=== PATIENT | female | born 1960 | race Caucasian/White ===

== ENCOUNTER 2016-04-05 12:49 | Outpatient (RCR) | payer OTHER ==
[~2016-04-05 12:49] MED LIST: ATOR20TA66 PO; PANT40TA2 PO; PNT40TEC; [UNRECOGNIZED DRUG - OTHER]
--- OUTSIDE RECORDS SUMMARY | 2016-04-05 12:53 | XMS REPORT | Continuity of Care Document ---
Author Author [facility] Organization [facility] Address Unknown Phone Unavailable Care Team Providers Care Poolroom Table Attendant Name Role Phone BERNADETTE CHANEY MD PCP Insurance Providers Payer Name Policy Number Subscriber Name Relationship Enter Insurance Name [id number] Nita Garcia 20 Self / Same As Patient Advance Directives Directive Response Recorded Date/Time Advance Directives Yes 12/22/15 12:59pm Health Care Power of [employer] Yes 12/22/15 12:59pm Organ Donor No 09/18/07 11:27am Resuscitation Status Full Code 12/22/15 12:59pm Problems No problem information available. Medications Past Home Medications Medication Directions Ordered Status Pantoprazole Sodium 40 Mg Tablet., 09/18/07 Discontinued [Florentino] Tab, 09/18/07 Discontinued Social History Social History Problem Response Recorded Date/Time Alcohol Use Denies Use 12/22/2015 12:59pm Recreational Drug Use No 12/22/2015 12:59pm Recent Foreign Travel No 12/22/2015 12:58pm Recent Infectious Disease Exposure No 12/22/2015 12:58pm Sexually Transmitted Disease No 12/22/2015 12:59pm HIV/AIDS No 12/22/2015 12:59pm Smoking Status Never a Smoker 12/22/2015 12:59pm Recent Hopitalizations No 12/22/2015 12:59pm Sexually Transmitted Disease No 12/22/2015 12:59pm Query Response Start Date Stop Date Smoking Status Never a Smoker Hospital Discharge Instructions No hospital discharge instructions. Plan of Care Discharge Date 12/22/15 1:04pm Prescriptions See Medication Section Functional Status No functional status results. Allergies, Adverse Reactions, Alerts No known allergies. Immunizations No immunization records. Vital Signs Acute Vital Signs Vital Response Date/Time Height (Feet) 4 feet 12/22/2015 12:57pm Height (Inches) 11.00 inches 12/22/2015 12:57pm Height (Calculated Centimeters) 149.560785 cm 12/22/2015 12:57pm Weight (Pounds) 170 pounds 12/22/2015 12:57pm Weight (Ounces) 0.0 oz 12/22/2015 12:57pm Weight (Calculated Grams) 34637.70 gm 12/22/2015 12:57pm Weight (Calculated Kilograms) 77.007007 kilograms 12/22/2015 12:57pm Calculated BMI 34.3 12/22/2015 12:57pm Results No known relevant diagnostic tests, laboratory data and/or discharge summary. Procedures No known history of procedures. Encounters Encounter Location Arrival/Admit Date Discharge/Depart Date Attending Provider Departed Clinic [facility] 12/22/15 5:52am 12/22/15 1: 04pm ESEQUIEL VALERIO MD
== END 2016-07-04 | disposition home or self-care (01) ==
LOC: DSME 12:49
PROVIDERS: ATTEND Nurse Practitioner
DX: E11.9 Type 2 diabetes mellitus without complications (principal); E66.9 Obesity, unspecified

== ENCOUNTER → 2016-05-21 | Outpatient (CLI) | payer OTHER ==
--- NOTE | 2016-05-24 13:49 | Diagnostic Imaging Report ---
Bilateral screening mammogram The current study was also evaluated with a Computer Aided Detection (CAD) system. INDICATION: Screening. No current complaints stated on the questionnaire. COMPARISON: 05/23/15. FINDINGS: The breasts are composed of scattered fibroglandular densities. There are scattered benign-appearing calcifications. Allowing for technique and positional differences, no suspicious change is seen. IMPRESSION: No significant change. ACR BI-RADS Category 2: Benign findings. Result letter will be mailed to the patient. Note: At least 10% of breast cancer is not imaged by mammography. Dictated by: Dictated on workstation # [id number]
== END ==
LOC: RAD 13:23
PROVIDERS: ATTEND Internal Medicine
DX: Z12.31 Encounter for screening mammogram for malignant neoplasm of breast (principal)
CPT/HCPCS: 77067

== ENCOUNTER → 2020-01-25 | Outpatient (CLI) | payer BC, OTHER ==
--- NOTE | 2020-01-25 11:39 | Diagnostic Imaging Report ---
INDICATION: Routine screening. Comparison is made with prior mammogram from 05/21/2016 and 05/23/2015. 2-D and 3-D bilateral screening mammography was performed with CAD. Scattered fibroglandular densities are identified bilaterally. Occasional benign calcifications are noted. No mass or malignant appearing microcalcifications are seen. Axillae are unremarkable. IMPRESSION: BI-RADS Category 2 No mammographic features suspicious for malignancy are identified. ACR BI-RADS Category 2: Benign findings. Result letter will be mailed to the patient. Note: At least 10% of breast cancer is not imaged by mammography. Dictated by: Dictated on workstation # [id number]
== END ==
LOC: RAD 09:58
PROVIDERS: ATTEND Internal Medicine
DX: Z12.31 Encounter for screening mammogram for malignant neoplasm of breast (principal)
CPT/HCPCS: 77063; 77067

== ENCOUNTER → 2020-04-03 | Outpatient (CLI) | payer BC | LOC: LABNPT 05:27 | PROVIDERS: ATTEND Internal Medicine | DX: U07.1 COVID-19 (principal) | CPT/HCPCS: 87635 ==

== ENCOUNTER → 2021-02-17 | Outpatient (CLI) | payer BC ==
--- NOTE | 2021-02-17 16:27 | Diagnostic Imaging Report ---
EXAMINATION: Digital mammogram bilateral screening with CAD. INDICATION: Screening. COMPARISON: This study was compared to the prior exams of 01/25/2020, 05/21/2016, and 05/23/2015. PERSONAL HISTORY: At this time, there are no current complaints. FINDINGS: The fibroglandular tissue in both breasts is heterogeneously dense. This does limit the sensitivity of this exam. Overall, there does not appear to have been any significant change when compared to the prior study. No primary or secondary sign of malignancy is noted. IMPRESSION: There is no radiographic evidence for malignancy. ACR BI-RADS Category 1: Negative. Result letter will be mailed to the patient. Note: At least 10% of breast cancer is not imaged by mammography. Dictated by: Dictated on workstation # [id number]
== END ==
LOC: RAD 10:33
PROVIDERS: ATTEND Internal Medicine
DX: Z12.31 Encounter for screening mammogram for malignant neoplasm of breast (principal)
CPT/HCPCS: 77063; 77067

== ENCOUNTER 2021-02-26 05:37 | Outpatient (CLI) | payer BC ==
[~2021-02-26] VITALS: Ht 149.9 cm; Wt 77.2 kg
[2021-02-27] MEDS ORDERED: ENAL10TA16 PO (12:04)
[2021-02-27] MEDS ORDERED: SERT-414 PO (12:04)
[2021-02-27] MEDS ORDERED: METF-397 PO (12:04)
== END 2021-02-27 13:48 | disposition home or self-care (01) ==
LOC: PREOP 05:37
PROVIDERS: ATTEND Internal Medicine
DX: Z01.818 Encounter for other preprocedural examination (principal)

== ENCOUNTER 2021-03-06 07:52 | Day surgery (SDC) | payer BC ==
--- NOTE | 2021-02-26 15:26 | HISTORY AND PHYSICAL ---
DATE OF SERVICE: COLONOSCOPY HISTORY AND PHYSICAL HISTORY OF PRESENT ILLNESS: The patient is a 60-year-old white female referred by Dr. Cyr for screening colonoscopy. She is deemed to be of a ieochx-tgwz-audnkdj risk as her mother succumbed to colon cancer at the age of 78. Number of years ago, likely over 10, she had colonoscopy at which time she felt colon polyps were noted and removed. PAST MEDICAL HISTORY: Significant for hypertension, type 2 diabetes mellitus and hyperlipidemia with no known history of coronary artery disease. MEDICATIONS ON ADMISSION: Include Lipitor 20 mg daily, Claritin 10 mg daily, metformin 1000 mg in the morning and 500 at bedtime, enalapril 2.5 mg daily, pantoprazole 40 mg daily and sertraline 50 mg daily. PAST SURGICAL HISTORY: She has had section x2 and had ventral hernia repair and hysterectomy 14+ years ago for reported benign reasons. She also underwent fundoplication per Dr. Brito for reflux. SOCIAL HISTORY: She with her manages an automotive shop in [place] with no past smoking or alcohol use history. FAMILY HISTORY: Father, still living at the age of 85 in a relatively decent health and again mother of colon cancer at the age of 78. REVIEW OF SYSTEMS: CONSTITUTIONAL: Denies night sweats, chills, fever, or change in weight. PULMONARY: Denies cough, wheezing or shortness of breath. CARDIOVASCULAR: Denies chest pain, orthopnea, PND, pedal edema or syncope. GASTROINTESTINAL: The patient denies melena or bright red blood per rectum, abdominal pain or change in bowel habit. PHYSICAL EXAMINATION: GENERAL: Reveals a pleasant white female, appears to be in no acute distress. VITAL SIGNS: Weight 172.4 pounds, blood pressure 142/88. HEENT: Unremarkable. Sclerae nonicteric. CHEST: Clear to auscultation. CARDIOVASCULAR: Reveals a regular rate and rhythm without murmur, S3 or S4. ABDOMEN: Soft, supple without mass, organomegaly or tenderness. EXTREMITIES: Reveal no cyanosis, clubbing or edema. ASSESSMENT AND PLAN: The patient is being set up for screening colonoscopy, deemed to be of a oeqtrh-wcky-uoqobyx risk due to mother, who succumbed to colon cancer at age 78. Prep instructions with Suprep kit were given and questions were answered. I thank you for the referral of this pleasant lady. Job ID: [id number] DocumentID: [id number] Dictated Date: 02/26/2021 14:44:21 Web Press Operator Helper Offset Date: 02/26/2021 14:59:41 Dictated By: RAJ ZALDIVAR MD
[~2021-03-06] VITALS: Ht 149 cm; Wt 77.0 kg
[~2021-03-06 07:52] MED LIST changes: +ENAL10TA16 PO; +METF-397 PO; +SERT-414 PO
[2021-03-06] MEDS ORDERED: LACTATED RINGERS 1,000 ML IV ONE (07:59)
[2021-03-06] MEDS ORDERED: LACTATED RINGERS 1,000 ML IV STA (08:07)
[2021-03-06 08:15] VITALS: BP 141/82
[2021-03-06] MEDS ORDERED: LIDOCAINE JELLY 2% 6 ML SYRINGE MM PRN (08:15)
[2021-03-06] MEDS ORDERED: HURRICAINE EXT TUBE (BENZOCAINE) XX PRN (08:15)
[2021-03-06] MEDS ORDERED: PROPOFOL INJECTION 50 ML IV ONE (08:58)
--- NOTE | 2021-03-06 09:08 | Pre-Op Note & Conscious Sedat ---
Pre-Operative Progress Note H&P Reviewed The H&P was reviewed, patient examined and no changes noted. Date H&P Reviewed: Mar 06, 2021 Time H&P Reviewed: 08:50 Conscious Sedation Pre-Proced ASA Score 2 For ASA 3 and 4: Consider anesthesia and medical clearance. Also, for patients with a history of failed moderate sedation consider anesthesia. Airway Lungs Heart ASA score ASA 1: a normal healthy patient ASA 2: a patient with a mild systemic disease (mid diabetes, controlled hypertension, obesity ASA 3: a patient with a severe systemic disease that limits activity (angina, COPD, prior Myocardial infarction) ASA 4: a patient with an incapacitating disease that is a constant threat to life (CHF, renal failure) ASA 5: a moribund patient not expected to survive 24 hrs. (ruptured aneurysm) ASA 6: a declared brain- patient whose organs are being harvested. For emergent operations, add the letter E after the classification Mallampati Classification Grade 2 Sedation Plan Analgesia, Amnesia, Plan communicated to team members, Discussed options with patient/fam, Discussed risks with patient/fam The patient is an appropriate candidate to undergo the planned procedure, sedation, and anesthesia. The patient immediately re-assessed prior to indication. RAJ ZALDIVAR MD Mar 06, 2021 09:08
--- NOTE | 2021-03-06 09:54 | Anesthesia-General Post-Op ---
MAC Patient Condition Mental Status/LOC: Same as Preop Cardiovascular: Satisfactory Nausea/Vomiting: Absent Respiratory: Satisfactory Pain: Controlled Complications: Absent Post Op Complications Complications None Follow Up Care/Instructions Patient Instructions None needed. Anesthesiology Discharge Order Discharge Order Patient is doing well, no complaints, stable vital signs, no apparent adverse anesthesia problems. No complications reported per nursing. JOS BAER CRNA Mar 06, 2021 09:54
[2021-03-06 09:55] VITALS: BP 115/65
[2021-03-06 10:15] VITALS: BP 132/78
--- NOTE | 2021-03-06 13:08 | OPERATIVE REPORT ---
DATE OF SERVICE: PANENDOSCOPY SUMMARY Colonoscopy was performed for screening purposes. EGD was performed due to history of reflux and intermittent dysphagia. DESCRIPTION OF PROCEDURE: The patient was placed in the left lateral decubitus position. The endoscope was inserted in the oral cavity and under direct visualization, esophagus was intubated. Endoscope was passed down the esophagus through stomach and second portion of the duodenum. Careful inspection was made as the endoscope was withdrawn. The patient tolerated the procedure well. FINDINGS: The posterior pharynx, true and false vocal folds, arytenoids, aperture and epiglottis were unremarkable on visual inspection. Proximal, mid and distal esophagus were unremarkable. The Z line was distinct. There was no evidence for erythema or findings to suggest Jacobs's change. There is a small sliding hiatal hernia present. The patient was not sure whether or not she had fundoplication in the past, but saw no evidence for fundoplication on today's procedure. The cardia was unremarkable. Fair number of small to medium size fundal appearing polyps were noted in the mid and distal fundus. One of the larger ones were removed via cold forceps. The antrum was unremarkable as was the pylorus, the pyloric channel, duodenal bulb and second portion of the duodenum. No evidence for gastritis or peptic ulcer disease was noted. ASSESSMENT: No evidence for erosive esophagitis was noted on today's study. There was no evidence for mechanical obstruction of the esophagus or evidence for Jacobs's change. Moderate number of small to medium size fundal appearing polyps were noted in the mid and distal fundus of the stomach, larger ones was removed via cold forceps and submitted for histopathology. No other abnormalities noted on today's EGD. We then proceeded with colonoscopy. DESCRIPTION OF PROCEDURE: Prior to undergoing colonoscopy, digital rectal evaluation was performed. Anal sphincter tone was normal and the perianal reflexes intact. No abnormalities were noted on digital inspection of anal canal or distal rectal vault. The colonoscope was then inserted into the rectum and under direct visualization advanced to cecum. The cecum was identified by identification of ileocecal valve and cecal strap. Photographic documentation was obtained. Quality of prep was fair. FINDINGS: There was no evidence for internal or external hemorrhoids and the rectum was unremarkable. Moderate number of small to medium size sigmoid diverticulum were present. No evidence for diverticulitis. No evidence for neoplasia was identified. The descending colon, splenic flexure, transverse colon, hepatic flexure, ascending colon, and cecum were unremarkable. ASSESSMENT: Mild to moderate diverticular disease confined to the sigmoid colon was present without evidence for diverticulitis. This is otherwise normal colonoscopy to the cecum with no evidence for neoplasia. Considering family history, I would advocate consideration for repeat screening colonoscopy in 5 years. I thank you for the referral of this pleasant lady. Job ID: [id number] DocumentID: [id number] Dictated Date: 03/06/2021 10:06:51 Lightning Rod Installer Date: 03/06/2021 13:07:59 Dictated By: RAJ ZALDIVAR MD [facility]
== END 2021-03-06 10:30 | disposition home or self-care (01) ==
LOC: ENDO 07:52
PROVIDERS: ATTEND Internal Medicine
DX: Z12.11 Encounter for screening for malignant neoplasm of colon (principal); K21.9 Gastro-esophageal reflux disease without esophagitis; K44.9 Diaphragmatic hernia without obstruction or gangrene; K31.7 Polyp of stomach and duodenum; K57.30 Diverticulosis of large intestine without perforation or abscess without bleeding; I10 Essential (primary) hypertension; E78.5 Hyperlipidemia, unspecified; E11.9 Type 2 diabetes mellitus without complications; E66.9 Obesity, unspecified; Z68.34 Body mass index [BMI] 34.0-34.9, adult; Z79.84 Long term (current) use of oral hypoglycemic drugs; Z79.899 Other long term (current) drug therapy; Z90.710 Acquired absence of both cervix and uterus
CPT/HCPCS: 82947; 88305

== ENCOUNTER → 2022-03-17 | Outpatient (CLI) | payer BC, OTHER ==
--- NOTE | 2022-03-17 14:51 | Diagnostic Imaging Report ---
Indication: Routine screening. Comparison is made with prior mammogram 02/17/2021 and 01/25/2020. 2-D and 3-D bilateral screening mammography was performed with CAD. CAD is utilized. The current study was also evaluated with a Computer Aided Detection (CAD) system. Scattered fibroglandular densities are identified bilaterally. The parenchymal pattern is stable. No mass or malignant-appearing microcalcifications are seen. Axillae are unremarkable. IMPRESSION: BI-RADS Category 1 No mammographic features suspicious for malignancy are identified. ACR BI-RADS Category 1: Negative. Result letter will be mailed to the patient. Note: At least 10% of breast cancer is not imaged by mammography. Dictated by: Dictated on workstation # [id number]
== END ==
LOC: RAD 10:37
PROVIDERS: ATTEND Internal Medicine
DX: Z12.31 Encounter for screening mammogram for malignant neoplasm of breast (principal)
CPT/HCPCS: 77063; 77067